=== PATIENT | male | born 1995 | race Caucasian/White ===

== ENCOUNTER 2019-07-15 14:53 | Emergency (ER) | payer OTHER, SELFPAY ==
[2019-07-15 16:42] LABS: Absolute Lymphocytes (CBC) 3.1 K/uL (0.7-4.9); Hematocrit 40.9 % (39.6-49.0); Lymphocytes % 30.3 % (15.3-44.8); MPV 8.3 fL (7.6-11.3)
[2019-07-15 16:45] LABS: Albumin 3.8 g/dL (3.4-5.0); Bilirubin Total 0.7 mg/dL (0.2-1.0); Potassium 3.9 mmol/L (3.5-5.1); Protein, Total 7.8 g/dL (6.4-8.2)
--- NOTE | 2019-07-15 16:54 | ER ---
Nurse's Notes [facility] Name: Berhane Waite Age: 24 yrs Sex: Male : 1995 Arrival Date: 07/15/2019 Time: 14:54 Bed 27 Private MD: Diagnosis: Unspecified renal colic Presentation: 07/14 15:17 Chief complaint: Patient states: L sided flank pain, difficulty urinating andnausea, dx ph w/ kidney stone approx 1 week ago at [place] ED, pain returned 1 day after d/c, attempted follow up w/ direct support professional but was told to come to ED. Coronavirus screen: The patient has NOT traveled to a country currently being monitored by the CDC within the last 14 days. The patient has NOT had contact with any known and/or suspected case of coronavirus. Ebola Screen: No symptoms or risks identified at this time. Initial Sepsis Screen: Does the patient meet any 2 criteria? No. Patient's initial sepsis screen is negative. Does the patient have a suspected source of infection? No. Patient's initial sepsis screen is negative. Risk Assessment: Do you want to hurt yourself or someone else? Patient reports no desire to harm self or others. 15:17 Method Of Arrival: Ambulatory ph 15:17 Acuity: COLBY 3 ph Historical: - Allergies: 15:22 No Known Allergies; ph - PMHx: 15:22 Kidney stones; ph - PSHx: 15:22 None; ph - Immunization history:: Adult Immunizations unknown. - Social history:: Smoking status: Patient denies any tobacco usage or history of. Vital Signs: 15:17 BP 127 / 95; Pulse 85; Resp 18; Temp 97.8; Pulse Ox 100% on R/A; Weight 149.69 kg; Pain ph 2/10; ED Course: 14:54 Patient arrived in ED. fj1 15:19 Triage completed. ph 15:21 Bismark White MD is Attending Physician. ps1 15:22 Arm band placed on Patient placed in an exam room. ph 15:40 Valencia Pugh, MIKAEL is Primary Nurse. ls4 15:55 two missed venipuncture attempts for blood. Called Phlebotomy lab to come try. Patient alonzo handled well. 16:00 Urine collected: clean catch specimen, clear, darnell colored. jp3 16:37 Abdomen 1 View (KUB) XRAY In Process Unspecified. EDMS 16:53 Abram Ruiz MD is Referral Physician. ps1 Administered Medications: No medications were administered Outcome: 16:53 Discharge ordered by . ps1 17:35 Patient left the ED. ls4 Signatures: Dispatcher [employer] EDMO Fariba Yousif, RN RN Bismark De La Rosa MD MD ps1 Aakash Hurley jp3 Valencia Pugh RN RN ls4 Juan Simpson fj1
--- NOTE | 2019-07-15 16:55 | EDPHYS ---
Physician Documentation [facility] Name: Berhane Waite Age: 24 yrs Sex: Male : 1995 Arrival Date: 07/15/2019 Time: 14:54 Bed 27 Private MD: ED Physician Bismark White HPI: 07/14 16:15 This 24 yrs old Male presents to ER via Ambulatory with complaints of ps1 REFERRAL FROM [facility] (KIDNEY STONES). 16:15 Patient was seen at [place] [facility] for same complaints. Has intermittent right flank pain. ps1 Has T3, cipro. Symptoms mild 2/10 in ED. Sent from uro to get a KUB for progression. Patient not sure why. No fever or cough. COVID screen negative. . Historical: - Allergies: 15:22 No Known Allergies; ph - PMHx: 15:22 Kidney stones; ph - PSHx: 15:22 None; ph - Immunization history:: Adult Immunizations unknown. - Social history:: Smoking status: Patient denies any tobacco usage or history of. ROS: 16:15 Constitutional: Negative for fever, chills, and weight loss, Eyes: Negative for injury, ps1 pain, redness, and discharge, Cardiovascular: Negative for chest pain, palpitations, and edema, Respiratory: Negative for shortness of breath, cough, wheezing, and pleuritic chest pain, Abdomen/GI: Negative for abdominal pain, nausea, vomiting, diarrhea, and constipation, MS/Extremity: Negative for injury and deformity, Skin: Negative for injury, rash, and discoloration. 16:15 : Positive for flank pain. Exam: 16:15 Constitutional: This is a well developed, well nourished patient who is awake, alert, ps1 and in no acute distress. Head/Face: Normocephalic, atraumatic. Eyes: Pupils equal round and reactive to light, extra-ocular motions intact. Lids and lashes normal. Conjunctiva and sclera are non-icteric and not injected. Cardiovascular: Regular rate and rhythm. No gallops, murmurs, or rubs. Normal PMI, no JVD. No pulse deficits. Respiratory: Lungs have equal breath sounds bilaterally, clear to auscultation and percussion. No rales, rhonchi or wheezes noted. No increased work of breathing, no retractions or nasal flaring. Abdomen/GI: Soft, non-tender, with normal bowel sounds. No distension or tympany. No guarding or rebound. No evidence of tenderness throughout. Skin: Warm, dry with normal turgor. Normal color with no rashes, no lesions, and no evidence of cellulitis. MS/ Extremity: Pulses equal, no cyanosis. Neurovascular intact. Full, normal range of motion. Neuro: Awake and alert, GCS 15, oriented to person, place, time, and situation. Cranial nerves II-XII grossly intact. Sensory grossly intact. Vital Signs: 15:17 BP 127 / 95; Pulse 85; Resp 18; Temp 97.8; Pulse Ox 100% on R/A; Weight 149.69 kg; Pain ph 2/10; MDM: 15:33 Patient medically screened. ps1 16:55 Data reviewed: vital signs, nurses notes. Counseling: I had a detailed discussion with ps1 the patient and/or guardian regarding: the historical points, exam findings, and any diagnostic results supporting the discharge/admit diagnosis, lab results, the need for outpatient follow up, a urologist, to return to the emergency department if symptoms worsen or persist or if there are any questions or concerns that arise at home. 07/14 15:25 Order name: CBC with Diff; Complete Time: 16:52 [facility] 07/14 15:25 Order name: CMP; Complete Time: 16:52 [facility] 07/14 15:25 Order name: Urine Dipstick-Ancillary (obtain specimen); Complete Time: 16:09 [facility] 07/14 15:38 Order name: Abdomen 1 View (KUB) XRAY; Complete Time: 17:18 [facility] 07/14 16:09 Order name: Urine Dipstick--Ancillary (enter results) eb Administered Medications: No medications were administered Disposition: 07/15/19 16:53 Discharged to Home. Impression: Unspecified renal colic. - Condition is Stable. - Discharge Instructions: Kidney Stones. - Prescriptions for ketorolac 10 mg Oral tablet - take 1 tablet by ORAL route every 4-6 hours not to exceed 40 mg in 24hrs; 10 tablet. - Medication Reconciliation Form, Thank You Letter, Antibiotic Education, Prescription Opioid Use form. - Follow up: Abram Ruiz MD; When: As needed; Reason: Further diagnostic work-up, Recheck today's complaints, Continuance of care. Follow up: Emergency Department; When: As needed; Reason: Fever > 102 F, Worsening of condition. - Problem is an ongoing problem. - Symptoms have improved. Signatures: Dispatcher [employer] EDFariba Mobley, RN RN ph Bismark White MD MD ps1 Valencia Pugh RN RN ls4 Corrections: (The following items were deleted from the chart) 17:35 16:53 07/15/2019 16:53 Discharged to Home. Impression: Unspecified renal colic. ls4 Condition is Stable. Forms are Medication Reconciliation Form, Thank You Letter, Antibiotic Education, Prescription Opioid Use. Follow up: Abram Ruiz; When: As needed; Reason: Further diagnostic work-up, Recheck today's complaints, Continuance of care. Follow up: Emergency Department; When: As needed; Reason: Fever > 102 F, Worsening of condition. Problem is an ongoing problem. Symptoms have improved. ps1
--- NOTE | 2019-07-15 17:01 | RAD REPORT ---
EXAM DESCRIPTION: RAD - Abdomen 1 View (KUB) - 07/15/2019 4:36 pm CLINICAL HISTORY: stone progression , history of recent left-sided kidney stone diagnosis COMPARISON: No comparisons FINDINGS: Punctate left-sided nephrolithiasis is suspected. These are faint calculi overlying the le ft renal shadow. Right kidney is almost fully obscured by retained colon content. A 5 millimeter size d calcification is seen in the lower left pelvis. Given the history, this is probably a left ureteral calculus at the UVJ. No other pelvic calcifications. No bladder calculus suspected. Bowel gas pattern is nonspecific. No obstruction, free air or pneumatosis. No significant bony findings IMPRESSION: A 5 millimeter left pelvic floor calcification is present. Given the provided history th is is most likely a ureteral calculus at the UVJ.
[2019-07-15 17:49] LABS: Urine Blood 2+ (NEG); Urine Glucose NEGATIVE (NEG); Urine Protein NEGATIVE (NEG); Urine Specific Gravity 1.025 (1.005-1.030)
== END 2019-07-15 17:35 | disposition home or self-care (01) ==
LOC: ER 14:53
DX: N23 Unspecified renal colic (principal); Z87.442 Personal history of urinary calculi
CPT/HCPCS: 36415; 74018; 80053; 81003; 85025; 99283

== ENCOUNTER 2019-11-01 12:44 | Emergency (ER) | payer SELFPAY ==
[2019-11-01 14:10] LABS: Urine Bacteria <20 /HPF (NONE SEEN); Urine RBC <5 /HPF (NONE SEEN)
[2019-11-01 14:11] LABS: Urine Culture Reflex Order NOT NEEDED; Urine Mucus 2+ /HPF (NONE SEEN)
[2019-11-01 14:12] LABS: Urine Blood TRACE (NEG); Urine Glucose NEGATIVE (NEG); Urine Protein NEGATIVE (NEG); Urine Specific Gravity >1.030 (1.005-1.030); Urine pH 5.5 (5.0-7.0)
--- NOTE | 2019-11-01 15:50 | ER ---
Nurse's Notes [facility] Name: Berhane Waite Age: 24 yrs Sex: Male : 1995 Arrival Date: 11/01/2019 Time: 12:50 Bed 16 Private MD: Diagnosis: Urine frequency Presentation: 10/31 13:23 Chief complaint: Patient states: about a month has been having urgency and when he iw urinates still feels like his bladder isn't empty, also having frequency, has been on cipro for a 5 days, still having symptoms. Coronavirus screen: Proceed with normal triage. Patient denies a cough. Patient denies shortness of breath or difficulty breathing. Patient denies measured and/or subjective temperature greater than 100.4F prior to today's visit. Patient denies travel on a cruise ship or to a country the [facility] currently lists as an affected area. Patient denies contact with known and/or suspected case of COVID-19. Ebola Screen: Patient negative for fever greater than or equal to 101.5 degrees Fahrenheit, and additional compatible Ebola Virus Disease symptoms Patient denies exposure to infectious person. Patient denies travel to an Ebola-affected area in the 21 days before illness onset. No symptoms or risks identified at this time. Initial Sepsis Screen: Does the patient meet any 2 criteria? No. Patient's initial sepsis screen is negative. Does the patient have a suspected source of infection? No. Patient's initial sepsis screen is negative. Risk Assessment: Do you want to hurt yourself or someone else? Patient reports no desire to harm self or others. 13:23 Method Of Arrival: Ambulatory iw 13:23 Acuity: COLBY 4 iw Historical: - Allergies: 13:25 No Known Allergies; iw - Home Meds: 13:25 Cipro Oral [Active]; iw - PMHx: 13:25 Kidney stones; iw - PSHx: 13:25 None; iw - Immunization history:: Adult Immunizations. - Social history:: Smoking status: Patient denies any tobacco usage or history of. Screenin:34 Abuse screen: Denies threats or abuse. Denies injuries from another. Nutritional ls4 screening: No deficits noted. Tuberculosis screening: No symptoms or risk factors identified. Fall Risk None identified. Vital Signs: 13:23 BP 136 / 77; Pulse 92; Resp 18; Temp 97.2; Pulse Ox 100% on R/A; Weight 158.76 kg; iw Height 5 ft. 9 in. (175.26 cm); 13:23 Body Mass Index 51.69 (158.76 kg, 175.26 cm) ED Course: 12:50 Patient arrived in ED. as 13:25 Triage completed. iw 14:09 Valencia Pugh, RN is Primary Nurse. ls4 14:34 No apparent distress. ls4 14:34 Patient has correct armband on for positive identification. Bed in low position. Call ls4 light in reach. Side rails up X 1. 14:34 No provider procedures requiring assistance completed. ls4 14:48 Bismark White MD is Attending Physician. ps1 15:04 POC 85. ls4 Administered Medications: No medications were administered Outcome: 15:49 Discharge ordered by . ps1 15:57 Patient left the ED. ls4 Signatures: Allie Lyon Irene, RN RN Bismark White MD MD ps1 Valencia Pugh, MIKAEL RN ls4
--- NOTE | 2019-11-01 15:50 | EDPHYS ---
Physician Documentation [facility] Name: Berhane Waite Age: 24 yrs Sex: Male : 1995 Arrival Date: 11/01/2019 Time: 12:50 Bed 16 Private MD: ED Physician Bismark White HPI: 10/31 15:01 This 24 yrs old Male presents to ER via Ambulatory with complaints of Urinary ps1 Problem. 15:01 patient states that he has urgency and frequency. No dysuria. Onset was several months ps1 ago after kidney stone. Never been tested for DM. States that he has polyuria. He is in a monogamous relationship. No new sexual partners. No lesions or discharge. Not concerned for STD.. Historical: - Allergies: 13:25 No Known Allergies; iw - Home Meds: 13:25 Cipro Oral [Active]; iw - PMHx: 13:25 Kidney stones; iw - PSHx: 13:25 None; iw - Immunization history:: Adult Immunizations. - Social history:: Smoking status: Patient denies any tobacco usage or history of. ROS: 15:01 Constitutional: Negative for fever, chills, and weight loss, Eyes: Negative for injury, ps1 pain, redness, and discharge, Cardiovascular: Negative for chest pain, palpitations, and edema, Respiratory: Negative for shortness of breath, cough, wheezing, and pleuritic chest pain, Abdomen/GI: Negative for abdominal pain, nausea, vomiting, diarrhea, and constipation, MS/Extremity: Negative for injury and deformity, Skin: Negative for injury, rash, and discoloration. 15:01 : Positive for urinary frequency, urgency. Exam: 15:01 Constitutional: This is a well developed, well nourished patient who is awake, alert, ps1 and in no acute distress. Head/Face: Normocephalic, atraumatic. ENT: Nares patent. No nasal discharge, no septal abnormalities noted. Tympanic membranes are normal and external auditory canals are clear. Oropharynx with no redness, swelling, or masses, exudates, or evidence of obstruction, uvula midline. Mucous membranes moist. Cardiovascular: Regular rate and rhythm. No gallops, murmurs, or rubs. Normal PMI, no JVD. No pulse deficits. Respiratory: Lungs have equal breath sounds bilaterally, clear to auscultation and percussion. No rales, rhonchi or wheezes noted. No increased work of breathing, no retractions or nasal flaring. Abdomen/GI: Soft, non-tender, with normal bowel sounds. No distension or tympany. No guarding or rebound. No evidence of tenderness throughout. MS/ Extremity: Pulses equal, no cyanosis. Neurovascular intact. Full, normal range of motion. Neuro: Awake and alert, GCS 15, oriented to person, place, time, and situation. Cranial nerves II-XII grossly intact. Sensory grossly intact. Vital Signs: 13:23 BP 136 / 77; Pulse 92; Resp 18; Temp 97.2; Pulse Ox 100% on R/A; Weight 158.76 kg; iw Height 5 ft. 9 in. (175.26 cm); 13:23 Body Mass Index 51.69 (158.76 kg, 175.26 cm) iw MDM: 14:53 Patient medically screened. ps1 10/31 13:39 Order name: Urine Microscopic Only; Complete Time: 14:53 10/31 13:40 Order name: Urine Culture iw 10/31 13:39 Order name: Urine Dipstick-Ancillary (obtain specimen); Complete Time: 14:06 10/31 14:09 Order name: Urine Dipstick--Ancillary (enter results); Complete Time: 14:53 10/31 14:59 Order name: Glucose Level; Complete Time: 15:04 ls4 Administered Medications: No medications were administered Disposition: 11/01/19 15:49 Discharged to Home. Impression: Urine frequency. - Condition is Stable. - Discharge Instructions: Urinary Frequency, Adult. - Medication Reconciliation Form, Thank You Letter, Antibiotic Education, Prescription Opioid Use form. - Follow up: Private Physician; When: 7 - 10 days; Reason: Further diagnostic work-up, Recheck today's complaints, Continuance of care. Follow up: Emergency Department; When: As needed; Reason: Fever > 102 F, Worsening of condition. - Problem is new. - Symptoms are unchanged. Signatures: Dispatcher [employer] EDDestiney Burris RN RN Bismark White MD MD ps1 Valencia Pugh RN RN ls4 Corrections: (The following items were deleted from the chart) 15:57 15:49 11/01/2019 15:49 Discharged to Home. Impression: Urine frequency. Condition is ls4 Stable. Forms are Medication Reconciliation Form, Thank You Letter, Antibiotic Education, Prescription Opioid Use. Follow up: Private Physician; When: 7 - 10 days; Reason: Further diagnostic work-up, Recheck today's complaints, Continuance of care. Follow up: Emergency Department; When: As needed; Reason: Fever > 102 F, Worsening of condition. Problem is new. Symptoms are unchanged. ps1
[2019-11-01 16:15] VITALS: BP 136/77; TEMP 97.2; O2SAT 100
== END 2019-11-01 15:57 | disposition home or self-care (01) ==
LOC: ER 12:44
DX: R35.0 Frequency of micturition (principal); Z87.442 Personal history of urinary calculi
CPT/HCPCS: 81003; 81015; 82947; 87086; 87088; 99281

== ENCOUNTER 2023-08-11 17:10 | Emergency (ER) | payer SELFPAY ==
[2023-08-11 18:04] LABS: Absolute Basophils 0.1 K/uL (0-0.5); Absolute Eosinophils 0.2 K/uL (0-0.5); Absolute Monocytes 0.5 K/uL (0.1-1.3); Absolute Neutrophil 7.3 K/uL (1.8-8.0); Eosinophils % 1.4 % (0-4.4); Hematocrit 50.8 % (39.6-49.0); Hemoglobin 16.4 g/dL (13.6-17.9); Lymphocytes % 27.3 % (15.3-44.8); MCH 28.5 pg (27.0-35.0); MCHC 32.3 g/dL (32.0-36.0); MCV 88.2 fL (80-100); MPV 8.7 fL (7.6-11.3); Monocytes % 4.9 % (3.3-12.3); Neutrophils % 65.4 % (41.7-73.7); Nucleated Red Blood Cells % 0.2 % (0-0); Platelets 314 thou/uL (152-406); RBC Red Blood Cell Count 5.75 M/uL (4.33-5.43); Red Cell Distribution Width 13.2 % (12.1-15.2)
[2023-08-11 18:13] LABS: Specific Gravity 1.016 (1.005-1.030); Sqamous Epithelial <5 /HPF (None Seen); Urine Bacteria None Seen /HPF (<20); Urine Bilirubin NEGATIVE (Negative); Urine Blood Trace (Negative); Urine Clarity Turbid (Clear); Urine Color Light-Yellow (Yellow); Urine Culture Reflex Order NOT NEEDED; Urine Glucose NEGATIVE (Negative); Urine Ketones NEGATIVE (Negative); Urine Microscopic Reflex YN ORDER UMIC; Urine Mucus Slight /HPF (None Seen); Urine Nitrite NEGATIVE (Negative); Urine Protein NEGATIVE (Negative); Urine RBC <5 /HPF (None Seen); Urine Urobilinogen Normal (Normal); Urine WBC <5 /HPF (<5); Urine pH 5.5 (5.0-7.0)
[2023-08-11 18:24] LABS: ALT/SGPT 153 U/L (16-61); AST/SGOT 61 U/L (15-37); Albumin 4.2 g/dL (3.4-5.0); Albumin/Globulin Ratio 1.1 (1.1-1.8); Alkaline Phosphatase 80 U/L (45-117); Anion Gap 11.9 mEq/L (5.0-15.0); BUN Blood Urea Nitrogen 8 mg/dL (7-18); Bicarbonate 23 mEq/L (21-32); Bilirubin Total 0.8 mg/dL (0.2-1.0); Globulin 3.9 g/dL (2.3-3.5); Glomerular Filtration Rate 117 ml/min (=/>90); Glucose Level 113 mg/dL (74-106); NT PRO-BNP 20 pg/mL (<125); Potassium 3.9 mEq/L (3.5-5.1); Protein, Total 8.1 g/dL (6.4-8.2); Sodium Level 137 mEq/L (136-145)
[2023-08-11 18:25] LABS: Troponin High Sensitivity < 3.0 pg/mL (<58.9)
--- NOTE | 2023-08-11 19:25 | RAD REPORT ---
EXAM DESCRIPTION: Neymar Single View08/11/2023 5:52 pm CLINICAL HISTORY: CHEST PAIN COMPARISON: No comparisons TECHNIQUE: Portable AP view of the chest. FINDINGS: The lungs are clear. No pneumothorax or effusion. The cardiomediastinal contours are unre markable. IMPRESSION: No acute cardiopulmonary process.
--- NOTE | 2023-08-11 19:41 | RAD REPORT ---
EXAM DESCRIPTION: CT - Stone Protocol - 08/11/2023 6:56 pm CLINICAL HISTORY: FLANK PAIN COMPARISON: No comparisons TECHNIQUE: Thin cut axial CT imaging of the abdomen and pelvis was performed without IV contrast. Mu ltiplanar reformats were generated and reviewed. All CT scans are performed using dose optimization technique as appropriate and may include automated exposure control or mA/KV adjustment according to patient size. FINDINGS: No suspicious findings in the lung bases. The liver, spleen, adrenal glands, and pancreas show no suspicious findings. Gallbladder and biliary tree are also without suspicious finding. Symmetric renal contour, without suspicious parenchymal findings within limits of noncontrast techniq ue. No evidence of hydroureteronephrosis. Bilateral nonobstructing calculi at the lower poles, measur ing up to 4 mm on the left the right. No dilated bowel loops or bowel wall thickening. No free air, free fluid or inflammatory stranding. N o hernia, mass or bulky lymphadenopathy. The urinary bladder is without significant finding. No suspicious bony findings. IMPRESSION: Tiny nonobstructing bilateral renal calculi. No hydroureteronephrosis. No other acute intra-abdominal process.
--- NOTE | 2023-08-11 20:06 | EDPHYS ---
Physician Documentation [facility] Name: Berhane Waite Age: 28 yrs Sex: Male : 1995 Arrival Date: 08/11/2023 Time: 17:10 Bed 7 Private MD: ED Physician Aaron Montemayor HPI: 08/10 20:06 This 28 yrs old Male presents to ER via Ambulatory with complaints of Kidney issues, kb Shortness Of Breath. 20:06 Patient is a 28-year-old male who presents for left flank pain that started 1 week ago kb but has been intermittent as well as shortness of breath when laying flat for 3 to 4 days. States the shortness of breath was worse last night he had chest pain today. Denies nausea, vomiting, urinary symptoms, fever, cough, congestion.. Historical: - Allergies: 17:23 No Known Allergies; as6 - PMHx: 17:23 Kidney stones; as6 - PSHx: 17:23 None; as6 - Immunization history:: Adult Immunizations up to date. - Infectious Disease History:: Denies. - Social history:: Smoking status: Patient denies any tobacco usage or history of. ROS: 20:06 Constitutional: As per HPI kb Exam: 18:33 Constitutional: This is a well developed, well nourished patient who is awake, alert, kb and in no acute distress. Head/Face: Normocephalic, atraumatic. ENT: Moist Mucous membranes Cardiovascular: Regular rate Respiratory: Respirations even and unlabored. No increased work of breathing. Talking in full sentences Abdomen/GI: Soft, non-tender. No distention Skin: Warm, dry with normal turgor. Normal color. MS/ Extremity: Pulses equal, no cyanosis. Neurovascular intact. Full, normal range of motion. Neuro: Awake and alert, GCS 15, oriented to person, place, time, and situation. Moves all extremities. Normal gait. 18:33 ECG was reviewed by the Attending Physician. Vital Signs: 17:24 BP 149 / 97; Pulse 77; Resp 18 S; Temp 98.3(O); Pulse Ox 97% on R/A; Weight 192.78 kg as6 (R); Height 5 ft. 7 in. (R); Pain 3/10; 18:11 BP 153 / 98; Pulse 99; Resp 18; Pulse Ox 94% on R/A; nj1 19:23 BP 131 / 63; Pulse 93; Resp 20; Pulse Ox 96% ; Pain 2/10; jj7 20:10 BP 124 / 76; Pulse 90; Resp 18; Temp 98.3; Pulse Ox 97% ; jj7 17:24 Body Mass Index 66.56 (192.78 kg, 170.18 cm) as6 17:24 Pain Scale: Adult as6 19:23 Pain Scale: Adult jj7 MDM: 17:14 Patient medically screened. kb 20:04 Data reviewed: vital signs, nurses notes. kb 20:06 Differential diagnosis: Acute PR, abnormal EKG, abnormal electrolytes, dehydration, kb UTI, pyelonephritis, kidney stone. Counseling: I had a detailed discussion with the patient and/or guardian regarding the historical points, exam findings, and any diagnostic results supporting the discharge/admit diagnosis, lab results, radiology results, the need for outpatient follow up, a family practitioner, to return to the emergency department if symptoms worsen or persist or if there are any questions or concerns that arise at home. ED course: Heart score 0. 16 17:25 Order name: CBC with Diff; Complete Time: 18:05 kb 08/10 17:25 Order name: NT PRO-BNP; Complete Time: 18:28 kb 08/10 17:25 Order name: Troponin HS; Complete Time: 18:28 kb 08/10 17:25 Order name: CMP; Complete Time: 18:28 kb 08/10 17:26 Order name: Urinalysis w/ reflexes; Complete Time: 18:15 kb 08/10 17:25 Order name: XRAY Chest (1 view); Complete Time: 19:28 kb 08/10 18:28 Order name: CT Stone Protocol; Complete Time: 19:50 kb 08/10 17:25 Order name: Cardiac monitoring; Complete Time: 18:08 kb 08/10 17:25 Order name: EKG - Nurse/Tech; Complete Time: 18:08 kb 08/10 17:25 Order name: IV Saline Lock; Complete Time: 17:50 kb 08/10 17:25 Order name: Labs collected and sent; Complete Time: 17:50 kb 08/10 17:25 Order name: O2 Per Protocol; Complete Time: 18:08 kb 08/10 17:25 Order name: O2 Sat Monitoring; Complete Time: 18:08 kb EC:33 Rate is 92 beats/min. Rhythm is regular. QRS [place] is Normal. MA interval is normal at kb 138 msec. QRS interval is normal at 92 msec. QT interval is normal at 445 msec. Administered Medications: No medications were administered Disposition Summary: 08/11/23 20:05 Discharge Ordered Notes: Location: Home kb Condition: Stable kb Diagnosis - Flank pain kb - Chest pain, unspecified kb Followup: kb - With: Emergency Department - When: As needed - Reason: Worsening of condition Followup: kb - With: Private Physician - When: 2 - 3 days - Reason: Recheck today's complaints, Continuance of care, Re-evaluation by your physician Discharge Instructions: - Discharge Summary Sheet kb - Nonspecific Chest Pain, Adult, [id number] kb - Flank Pain, Adult, [id number] kb Forms: - Medication Reconciliation Form kb - Thank You Letter kb - Antibiotic Education kb - Prescription Opioid Use kb - Patient Portal Instructions kb - Leadership Thank You Letter kb Addendum: 08/14/2023 01:02 I was immediately available for consultation during this patient's visit. I did not e c2 personally see the patient or discuss the patient with the CHRISTIN. . Signatures: Dispatcher [employer] Angelina Mcfadden, COOPER-C COOPER-James Benavides RN RN as6 Aaron Montemayor MD MD ec2 Corrections: (The following items were deleted from the chart) 08/10 17:25 17:25 Chest Single View+RAD.RAD.BRZ ordered. EDMS EDMS 18:29 18:29 Stone Protocol+CT.RAD.BRZ ordered. EDMS EDMS
--- NOTE | 2023-08-11 20:06 | ER ---
Nurse's Notes [facility] Name: Berhane Waite Age: 28 yrs Sex: Male : 1995 Arrival Date: 08/11/2023 Time: 17:10 Bed 7 Private MD: Diagnosis: Flank pain;Chest pain, unspecified Presentation: 08/10 17:22 Chief complaint: Patient states: left flank pain x1 week. Coronavirus screen: At this as6 time, the client does not indicate any symptoms associated with coronavirus-19. Ebola Screen: No symptoms or risks identified at this time. Risk Assessment: Do you want to hurt yourself or someone else? Patient reports no desire to harm self or others. Onset of symptoms was August 04, 2023. 17:22 Method Of Arrival: Ambulatory as6 17:22 Acuity: COLBY 3 as6 18:13 Initial Sepsis Screen: Does the patient meet any 2 criteria? HR > 90 bpm. No. Patient's nj1 initial sepsis screen is negative. Does the patient have a suspected source of infection? No. Patient's initial sepsis screen is negative. Historical: - Allergies: 17:23 No Known Allergies; as6 - PMHx: 17:23 Kidney stones; as6 - PSHx: 17:23 None; as6 - Immunization history:: Adult Immunizations up to date. - Infectious Disease History:: Denies. - Social history:: Smoking status: Patient denies any tobacco usage or history of. Screenin:13 [facility] ED Fall Risk Assessment (Adult) History of falling in the last 3 months, nj1 including since admission No falls in past 3 months (0 pts) Confusion or Disorientation No (0 pts) Intoxicated or Sedated No (0 pts) Impaired Gait No (0 pts) Mobility Assist Device Used No (0 pt) Altered Elimination No (0 pt) Score/Fall Risk Level 0 - 2 = Low Risk Oriented to surroundings, Maintained a safe environment, Hourly rounding (assess needs \\T\\ fall precautionary measures) done. Abuse screen: Denies threats or abuse. Denies injuries from another. Nutritional screening: No deficits noted. Tuberculosis screening: No symptoms or risk factors identified. Assessment: 17:35 General: Appears in no apparent distress. comfortable, Behavior is calm, cooperative, nj1 appropriate for age. Pain: Complains of pain in chest Pain currently is 2 out of 10 on a pain scale. Neuro: Level of Consciousness is awake, alert, obeys commands, Oriented to person, place, time, situation. 17:35 Cardiovascular: Patient's skin is warm and dry. Rhythm is sinus rhythm. Respiratory: nj1 Reports shortness of breath "orthopnea" Airway is patent Respiratory effort is even, unlabored. 19:23 Reassessment: Patient is alert, oriented x 3, equal unlabored respirations, skin jj7 warm/dry/pink. ASSUMED CARE OF PT. PT SITTING IN BED WATCHING TV. NO DISTRESS NOTED. NO NEEDS AT THIS TIME. CALL HUDOSN IN REACH. General: Appears in no apparent distress. comfortable, Behavior is calm, cooperative, appropriate for age. Vital Signs: 17:24 BP 149 / 97; Pulse 77; Resp 18 S; Temp 98.3(O); Pulse Ox 97% on R/A; Weight 192.78 kg as6 (R); Height 5 ft. 7 in. (R); Pain 3/10; 18:11 BP 153 / 98; Pulse 99; Resp 18; Pulse Ox 94% on R/A; nj1 19:23 BP 131 / 63; Pulse 93; Resp 20; Pulse Ox 96% ; Pain 2/10; jj7 20:10 BP 124 / 76; Pulse 90; Resp 18; Temp 98.3; Pulse Ox 97% ; jj7 17:24 Body Mass Index 66.56 (192.78 kg, 170.18 cm) as6 17:24 Pain Scale: Adult as6 19:23 Pain Scale: Adult jj7 ED Course: 17:13 Patient arrived in ED. im 17:13 Angelina Edward FNP-C is PHCP. kb 17:13 Aaron Montemayor MD is Attending Physician. kb 17:22 Arm band placed on left wrist. as6 17:23 Triage completed. as6 17:32 Casi Funez, MIKAEL is Primary Nurse. nj1 17:35 Patient has correct armband on for positive identification. Bed in low position. Call nj1 light in reach. Provided Education on: call light, fall precautions. 17:35 Client placed on continuous cardiac and pulse oximetry monitoring. NIBP monitoring nj1 applied. satellite project site monitor on. 17:38 Missed attempt(s): 22 gauge in right forearm. Bleeding controlled, band aid applied, nj1 catheter tip intact. 17:45 Inserted saline lock: 22 gauge in left forearm, using aseptic technique. Blood nj1 collected. 17:54 XRAY Chest (1 view) In Process Unspecified. EDMS 18:09 EKG done, by ED staff, reviewed by Angelina WINCHESTER. nj1 18:57 CT Stone Protocol In Process Unspecified. EDMS 20:10 No provider procedures requiring assistance completed. IV discontinued, intact, jj7 bleeding controlled, No redness/swelling at site. Pressure dressing applied. Administered Medications: No medications were administered Medication: 19:23 VIS not applicable for this client. jj7 Outcome: 20:05 Discharge ordered by . tracey 20:10 Discharged to home ambulatory, jj7 20:10 Condition: good 20:10 Discharge instructions given to patient, Instructed on discharge instructions, follow up and referral plans. Demonstrated understanding of instructions, follow-up care, 20:10 Patient left the ED. jj7 Signatures: Dispatcher [employer] Angelina Mcfadden FNP-C FNP-James Benavides RN RN as6 Aubrey Patricia RN RN jj7 Casi Funez RN RN nj1 Delia Guzman Corrections: (The following items were deleted from the chart) 19:32 19:23 General: Appears distressed, comfortable, Behavior is calm, cooperative, jj7 appropriate for age, jj7 19:32 19:23 Reassessment: Patient is alert, oriented x 3, equal unlabored respirations, skin jj7 warm/dry/pink. ASSUMED CARE OF PT. PT SITTING IN BED WATCHING TV. NO DISTRESS NOTED. NO NEEDS AT THIS TIME. CALL HUDSON IN REACH jj7 20:15 20:15 Patient left the ED. jj7 jj7
[2023-08-12 05:48] VITALS: BP 124/76; TEMP 98.3; O2SAT 97
== END 2023-08-11 20:15 | disposition home or self-care (01) ==
LOC: ER 17:10
DX: R10.9 Unspecified abdominal pain (principal); R07.9 Chest pain, unspecified
CPT/HCPCS: 36415; 71045; 74176; 76377; 80053; 81001; 83880; 84484; 85025; 93005; 99284

== ENCOUNTER 2025-01-14 12:11 | Emergency (ER) | payer SELFPAY ==
[2025-01-14 12:56] LABS: Absolute Lymphocytes (CBC) 2.6 K/uL (0.7-4.9); Hematocrit 46.8 % (39.6-49.0); Hemoglobin 15.8 g/dL (13.6-17.9); MCH 29.0 pg (27.0-35.0); MCHC 33.7 g/dL (32.0-36.0); MCV 86.0 fL (80-100); MPV 8.6 fL (7.6-11.3); Nucleated RBC Absolute Count 0.0 (0-0); Nucleated Red Blood Cells % 0.0 % (0-0); RBC Red Blood Cell Count 5.44 M/uL (4.33-5.43); White Blood Count 7.60 thou/uL (4.3-10.9)
[2025-01-14 13:09] LABS: Sqamous Epithelial <5 /HPF (None Seen); Urine Culture Reflex Order NOT NEEDED; Urine Microscopic Reflex YN ORDER UMIC
[2025-01-14 13:14] LABS: ALT/SGPT 58.0 U/L (16-61); AST/SGOT 30.0 U/L (15-37); Albumin 3.8 g/dL (3.4-5.0); Albumin/Globulin Ratio 0.9 (1.1-1.8); Alkaline Phosphatase 78.0 U/L (45-117); Anion Gap 6.9 mEq/L (5.0-15.0); BUN Blood Urea Nitrogen 9.0 mg/dL (7-18); Globulin 4.2 g/dL (2.3-3.5); Glucose Level 131.0 mg/dL (74-106); Lipase 35.0 U/L (13-75); Potassium 3.9 mEq/L (3.5-5.1)
--- NOTE | 2025-01-14 13:14 | RAD REPORT ---
EXAMINATION: CT ABDOMEN AND PELVIS WITHOUT CONTRAST CLINICAL INDICATION: FLANK PAIN TECHNIQUE: CT abdomen and pelvis was performed, without IV contrast, as per department protocol. Axia l, sagittal and coronal reconstructions were obtained. One or more of the following dose reduction techniques were used: Automated exposure control, adjustment of the mA and kV according to the patien t size, and iterative reconstruction. Unless otherwise specified, incidental findings do not require dedicated imaging follow-up. COMPARISON: 08/11/2023 FINDINGS: The lack of intravenous contrast limits the sensitivity of this exam for evaluation of solid visceral organs, vascular structures, and retroperitoneum. LOWER CHEST: The visualized lung bases are clear. LIVER:Normal in size and contour. No focal lesion. Grossly unremarkable gallbladder. SPLEEN: Normal size. No focal lesion. PANCREAS: No mass, ductal dilation, or enrique-pancreatic fluid. ADRENALS: Normal; no mass. KIDNEYS AND URETERS: 4 mm stone is present proximal right ureter without hydronephrosis. Bilateral ca lyceal stones are present, largest in the left inferior calyx measuring 6 - 7 mm. No hydronephrosis. URINARY BLADDER: Normal contour. GASTROINTESTINAL TRACT: No evidence of bowel obstruction, significant free fluid, free air or abscess . APPENDIX: Normal appendix. LYMPH NODES: No lymphadenopathy. MUSCULOSKELETAL: Mild multilevel spinal degenerative changes. ADDITIONAL FINDINGS: Small fat-containing umbilical hernia. Small bilateral inguinal hernias. IMPRESSION: 4 mm stone proximal right ureter without hydronephrosis. Bilateral calyceal calculi.
[2025-01-14] MEDS ORDERED: KETOROLAC 30 MG/ML INJ ONE (13:27)
[2025-01-14] MEDS ORDERED: TAMSULOSIN 0.4 MG SR CAP ONE (13:27)
[2025-01-14] MEDS ORDERED: MAGNESIUM SULFATE 1 gm IVPB 1 GM/100 ML BAG IV ONE (13:27)
--- NOTE | 2025-01-14 15:00 | EDPHYS ---
Physician Documentation [facility] Name: Berhane Waite Age: 29 yrs Sex: Male : 1995 Arrival Date: 01/14/2025 Time: 12:11 Bed 17 Private MD: ED Physician Logan Bowen HPI: 01/14 13:14 This 29 yrs old Male presents to ER via Ambulatory with complaints of Urinary Problem. rn 13:14 Patient reports 2 weeks of dysuria and increased urinary frequency. Reports discomfort rn only when urinating. No abdominal pain or back pain. Patient states this does not feel like previous kidney stones that he has had. No trauma. No fever or chills. No hematuria. Patient has no concern for STI. Historical: - Allergies: 12:20 No Known Allergies; hb - Home Meds: 12:20 None [Active]; hb - PMHx: 12:20 Kidney stones; hb - PSHx: 12:20 None; hb - Immunization history:: Adult Immunizations up to date. - Infectious Disease History:: Denies. - Social history:: Smoking status: Patient denies any tobacco usage or history of. - Family history:: not pertinent. - Hospitalizations: : No recent hospitalization is reported. ROS: 13:14 Constitutional: Negative for fever, chills, and weight loss, Cardiovascular: Negative rn for chest pain, palpitations, and edema, Respiratory: Negative for shortness of breath, cough, wheezing, and pleuritic chest pain, Abdomen/GI: Negative for abdominal pain, nausea, vomiting, diarrhea, and constipation, Back: Negative for injury and pain, : Positive for dysuria and increased urinary frequency MS/Extremity: Negative for injury and deformity, Skin: Negative for injury, rash, and discoloration, Neuro: Negative for headache, weakness, numbness, tingling, and seizure, Exam: 13:14 Constitutional: This is a well developed, well nourished patient who is awake, alert, rn and in no acute distress. Cardiovascular: Regular rate and rhythm. No pulse deficits. Respiratory: No increased work of breathing, no retractions or nasal flaring. Abdomen/GI: Soft, non-tender, no masses, no hernia, no peritoneal signs MS/ Extremity: Pulses equal, no cyanosis. Neurovascular intact. Full, normal range of motion. Equal circumference. Neuro: Awake and alert, GCS 15 Vital Signs: 12:18 BP 147 / 97; Pulse 68; Resp 18; Temp 97.4(TE); Pulse Ox 100% on R/A; Weight 215.46 kg; hb Height 5 ft. 7 in. ; Pain 0/10; 13:22 BP 128 / 87; Pulse 75; Resp 17; Pulse Ox 95% ; rg5 14:40 BP 93 / 64; Pulse 75; Resp 18; Pulse Ox 94% ; rg5 15:10 BP 119 / 83; Pulse 75; Resp 17; Pulse Ox 99% on R/A; rg5 12:18 Body Mass Index 74.39 (215.46 kg, 170.18 cm) hb 12:18 Pain Scale: Adult hb MDM: 12:19 Medical Screening Exam initiated rn 14:50 Differential diagnosis: UTI, prostatitis, urethritis. Data reviewed: vital signs, rn nurses notes, lab test result(s), radiologic studies, CT scan, and as a result, I will discharge patient. Counseling: I had a detailed discussion with the patient and/or guardian regarding the historical points, exam findings, and any diagnostic results supporting the discharge/admit diagnosis, lab results, radiology results. 14:59 Special discussion: I discussed with the patient/guardian in detail that at this point rn there is no indication for admission to the hospital. It is understood, however, that if the symptoms persist or worsen the patient needs to return immediately for re-evaluation. ED course: Patient with 4 mm proximal stone. Very minimal discomfort. Improved after treatment here. Will discharge home with medication and return precautions. I have personally reviewed all of the results, including but not limited to blood tests and imaging deemed necessary to safely discharge this patient at this time. All results given to and printed out for patient. I personally went over all the results with the patient and answered all questions. Patient will follow-up with PCP and or specialist as discussed. Return precautions given and understood.. 01/14 12: Order name: CBC with Diff; Complete Time: 13:18 rn 01/14 12:22 Order name: CMP; Complete Time: 13:18 rn 01/14 12:22 Order name: Lipase; Complete Time: 13:18 rn 01/14 12:22 Order name: UA Rfx Floyd Cult if indicated; Complete Time: 13:18 rn 01/14 13:29 Order name: Glucose, Ancillary Testing; Complete Time: 13:39 EDMS 01/14 12:22 Order name: CT Stone Protocol; Complete Time: 13:18 rn 01/14 12:22 Order name: IV Saline Lock; Complete Time: 12:49 rn 01/14 12:22 Order name: Labs collected and sent; Complete Time: 12:49 rn 01/14 12:54 Order name: Glucose Level; Complete Time: 13:18 rn Administered Medications: 13:35 Drug: Magnesium Sulfate IVPB 1 grams IVPB once over 1 hrs Route: IVPB; Infused Over: 1 rg5 hrs; Site: right antecubital; 14:35 Follow up: IV Status: Completed infusion; IV Intake: 100ml rg5 13:35 Drug: Ketorolac IVP 15 mg IVP once Route: IVP; Site: right antecubital; rg5 14:55 Follow up: Response: No adverse reaction rg5 13:36 Drug: Flomax PO 0.4 mg PO once Route: PO; rg5 14:55 Follow up: Response: No adverse reaction rg5 Disposition Summary: 01/14/25 15:00 Discharge Ordered Notes: Location: Home rn Problem: new rn Symptoms: have improved rn Condition: Stable rn Diagnosis - Calculus of ureter rn - Hematuria, unspecified rn Followup: rn - With: Private Physician - When: As needed - Reason: Recheck today's complaints, Re-evaluation by your physician Discharge Instructions: - Discharge Summary Sheet rn - Hematuria, Adult rn - Kidney Stones rn - Renal Colic rn - Dietary Guidelines to Help Prevent Kidney Stones rn Forms: - Medication Reconciliation Form rn - Antibiotic furniture technician - Prescription Opioid Use rn - Patient Portal Instructions rn - Leadership Thank You Letter rn Prescriptions: - Flomax 0.4 mg Oral capsule - take 1 capsule ORAL route daily Stop taking once you feel that you have passed rn your kidney stone; 10 capsule; Refills: 0, Product Selection Permitted - ondansetron 4 mg Oral Tablet,disintegrating - take 1 tablet ORAL route every 8 hours as needed for nausea and vomiting; 12 rn tablet; Refills: 0, Product Selection Permitted - Cipro 500 mg Oral Tablet - take 1 tablet ORAL route every 12 hours for 10 days; 20 tablet; Refills: 0, rn Product Selection Permitted - Tramadol 50 mg Oral Tablet - take 1 tablet ORAL route every 8 hours as needed; 12 tablet; Refills: 0, rn Product Selection Permitted Signatures: Dispatcher [employer] EDMS Logan Bowen MD MD rn Baxter, Heather RN RN Yang Gutierrez RN RN rg5 Corrections: (The following items were deleted from the chart) 12:22 12:22 Stone Protocol+CT.RAD.BRZ ordered. EDMS EDMS
--- NOTE | 2025-01-14 15:00 | ER ---
[facility] Name: Berh[facility] Age: 29 yrs Sex: Male : 1995 Arrival Date: 01/14/2025 Time: 12:11 Bed 17 Private MD: Diagnosis: Calculus of ureter;Hematuria, unspecified Presentation: 01/14 12:18 Chief complaint: Dysuria x 2 weeks, intermittent left flank pain x 2-3 days. hb Coronavirus screen: At this time, the client does not indicate any symptoms associated with coronavirus-19. Ebola Screen: No symptoms or risks identified at this time. Initial Sepsis Screen: Does the patient meet any 2 criteria? No. Patient's initial sepsis screen is negative. Does the patient have a suspected source of infection? No. Patient's initial sepsis screen is negative. Risk Assessment: Do you want to hurt yourself or someone else? Patient reports no desire to harm self or others. Onset of symptoms was December 31, 2024. 12:18 Method Of Arrival: Ambulatory hb 12:18 Acuity: COLBY 3 hb Historical: - Allergies: 12:20 No Known Allergies; hb - Home Meds: 12:20 None [Active]; hb - PMHx: 12:20 Kidney stones; hb - PSHx: 12:20 None; hb - Immunization history:: Adult Immunizations up to date. - Infectious Disease History:: Denies. - Social history:: Smoking status: Patient denies any tobacco usage or history of. - Family history:: not pertinent. - Hospitalizations: : No recent hospitalization is reported. Screenin:23 [facility] ED Fall Risk Assessment (Adult) History of falling in the last 3 months, rg5 including since admission No falls in past 3 months (0 pts) Confusion or Disorientation No (0 pts) Intoxicated or Sedated No (0 pts) Impaired Gait No (0 pts) Mobility Assist Device Used No (0 pt) Altered Elimination No (0 pt) Score/Fall Risk Level 0 - 2 = Low Risk Oriented to surroundings, Maintained a safe environment, Hourly rounding (assess needs \T\ fall precautionary measures) done. Abuse screen: Denies threats or abuse. Nutritional screening: No deficits noted. Tuberculosis screening: No symptoms or risk factors identified. Assessment: 12:10 General: Appears in no apparent distress. Behavior is calm, cooperative, appropriate rg5 for age. Pain: Denies pain. Quality of pain is described as aching. Neuro: Level of Consciousness is awake, alert, obeys commands, Oriented to person, place, time. Cardiovascular: Denies chest pain, Patient's skin is warm and dry. Respiratory: Airway is patent Respiratory effort is even, unlabored. GI: Abdomen is round obese. : Reports inability to void. EENT: EENT: No signs and/or symptoms were reported regarding the EENT system. Derm: Skin is intact, Skin is dry, Skin is normal, Skin temperature is warm. Musculoskeletal: Circulation, motion, and sensation intact. Range of motion: intact in all extremities. 13:35 Reassessment: No changes from previously documented assessment. Patient and/or family rg5 updated on plan of care and expected duration. Pain level reassessed. Patient is alert, oriented x 3, equal unlabored respirations, skin warm/dry/pink. 14:49 Reassessment: No changes from previously documented assessment. Patient and/or family rg5 updated on plan of care and expected duration. Pain level reassessed. Patient is alert, oriented x 3, equal unlabored respirations, skin warm/dry/pink. 15:15 Reassessment: Patient and/or family updated on plan of care and expected duration. Pain rg5 level reassessed. Patient is alert, oriented x 3, equal unlabored respirations, skin warm/dry/pink. Patient states feeling better. Patient states symptoms have improved. Vital Signs: 12:18 BP 147 / 97; Pulse 68; Resp 18; Temp 97.4(TE); Pulse Ox 100% on R/A; Weight 215.46 kg; hb Height 5 ft. 7 in. ; Pain 0/10; 13:22 BP 128 / 87; Pulse 75; Resp 17; Pulse Ox 95% ; rg5 14:40 BP 93 / 64; Pulse 75; Resp 18; Pulse Ox 94% ; rg5 15:10 BP 119 / 83; Pulse 75; Resp 17; Pulse Ox 99% on R/A; rg5 12:18 Body Mass Index 74.39 (215.46 kg, 170.18 cm) hb 12:18 Pain Scale: Adult hb ED Course: 12:13 Patient arrived in ED. ts1 12:16 Logan Bowen MD is Attending Physician. rn 12:20 Triage completed. hb 12:21 Arm band placed on. hb 12:42 Yang Sage, RN is Primary Nurse. rg5 12:49 Initial lab(s) drawn, by laborer cement gun placing, sent to lab. Inserted saline lock: 20 gauge in right ts3 antecubital area, using aseptic technique. Blood collected. Flushed with 10 mL NS. 12:50 Urine collected: clean catch specimen, sent to lab. ts3 13:07 CT Stone Protocol In Process Unspecified. EDMS 13:23 Patient has correct armband on for positive identification. Call light in reach. Side rg5 rails up X 1. 13:23 No provider procedures requiring assistance completed. rg5 15:15 Provided Education on: post er care. rg5 15:25 IV discontinued, bleeding controlled, No redness/swelling at site. Pressure dressing rg5 applied. Administered Medications: 13:35 Drug: Magnesium Sulfate IVPB 1 grams IVPB once over 1 hrs Route: IVPB; Infused Over: 1 rg5 hrs; Site: right antecubital; 14:35 Follow up: IV Status: Completed infusion; IV Intake: 100ml rg5 13:35 Drug: Ketorolac IVP 15 mg IVP once Route: IVP; Site: right antecubital; rg5 14:55 Follow up: Response: No adverse reaction rg5 13:36 Drug: Flomax PO 0.4 mg PO once Route: PO; rg5 14:55 Follow up: Response: No adverse reaction rg5 Medication: 15:15 VIS not applicable for this client. rg5 Intake: 14:35 IV: 100ml; Total: 100ml. rg5 Outcome: 15:00 Discharge ordered by . rn 15:25 Discharged to home ambulatory, rg5 15:25 Condition: stable 15:25 Discharge instructions given to patient, Instructed on discharge instructions, Demonstrated understanding of instructions, Prescriptions given X 4, 15:30 Patient left the ED. rg5 Signatures: Dispatcher [employer] EDCO Logan Bowen MD MD rn Baxter, Heather RN Barb Dickey PAS PAS ts1 Yang Sage, RN RN rg5 Katharina Galvan ts3
[2025-01-14 15:49] VITALS: TEMP 97.4
[2025-01-14 15:52] VITALS: BP 93/64; O2SAT 94
== END 2025-01-14 15:30 | disposition home or self-care (01) ==
LOC: ER 12:11
DX: N20.1 Calculus of ureter (principal); R31.9 Hematuria, unspecified
CPT/HCPCS: 36415; 74176; 76377; 80053; 81001; 82947; 83690; 85025; 96365; 96375; 99284; J3475